=== PATIENT | female | born 1975 | race African-American/Black ===

== ENCOUNTER 2020-05-02 21:33 | Emergency (ER) | payer OTHER ==
[2020-05-02 21:48] VITALS: BP 133/82; PULSE 82; TEMP 99.4; BMI 29.2
[2020-05-02] MEDS ORDERED: ACETAMINOPHEN 500 MG TABLET (FP) PO ONE (22:00)
[2020-05-02] MEDS ORDERED: NEOMYCIN/POLYMYXN/HC OTIC SOLUTION 10 ML BOTTLE ONE (22:02)
[2020-05-02] MEDS ORDERED: ACETAMINOPHEN 500 MG TABLET (FP) ONE (22:02)
[2020-05-03] MEDS ORDERED: NEOMYCIN/POLYMYXN/HC OTIC SOLUTION 10 ML BOTTLE AS ONE (22:00)
== END 2020-05-02 22:12 | disposition home or self-care (01) ==
LOC: FER 21:33
DX: H60.392 Other infective otitis externa, left ear (principal)
CPT/HCPCS: 99284-25

== ENCOUNTER 2023-06-10 18:35 | Emergency (ER) | payer OTHER ==
[2023-06-10 19:23] VITALS: BP 116/70; PULSE 88; RESP 15; TEMP 98.7; BMI 29.2
[2023-06-10] MEDS ORDERED: KETOROLAC TROMETHAMINE 30 MG/1 ML VIAL ONE (20:48)
[2023-06-10] MEDS: SODIUM CHLORIDE 1,000 ML IV ONE (20:50)
[2023-06-10] MEDS: KETOROLAC TROMETHAMINE 30 MG/1 ML VIAL IVPUSH ONE (20:51)
[2023-06-10 20:53] LABS: HEMATOCRIT 36.2 % (32.4-45.2); MCH 28.5 pg (25.7-33.7); MCHC 33.1 g/dl (32.0-36.0); MEAN CELL VOLUME 86.1 fl (80-96); MEAN PLT VOLUME 8.2 fl (7.5-11.1); PLATELET COUNT 179.7 10^3/uL (134-434); RDW 14.5 % (11.6-15.6); WHITE BLOOD COUNT 4.4 10^3/uL (4.0-10.8)
[2023-06-10 21:17] LABS: ALBUMIN 3.9 g/dl (3.4-5.0); BILIRUBIN,TOTAL 0.4 mg/dl (0.2-1); CALCIUM 9.1 mg/dl (8.5-10.1); CREATININE 0.8 mg/dl (0.6-1.3); POTASSIUM 3.8 mmol/L (3.5-5.1); TOT PROT 6.6 g/dl (6.4-8.2)
== END 2023-06-10 22:14 | disposition home or self-care (01) ==
LOC: FER 18:35
PROC: 3E033NZ Introduction of Analgesics, Hypnotics, Sedatives into Peripheral Vein, Percutaneous Approach (ICD-10-PCS; principal; 2023-06-10)
PROC: 3E0337Z Introduction of Electrolytic and Water Balance Substance into Peripheral Vein, Percutaneous Approach (ICD-10-PCS; 2023-06-10)
DX: R10.2 Pelvic and perineal pain (principal)
CPT/HCPCS: 36415; 80053; 81003; 82550; 85027; 87086; 99284-25